=== PATIENT | female | born 2000 | race Caucasian/White ===

== ENCOUNTER 2020-11-19 08:08 | Emergency (ER) | payer SELFPAY ==
--- NOTE | 2020-11-19 08:25 | EDM.PDOC ---
ED HPI GENERAL MEDICAL PROBLEM - General Chief Complaint: Lower Extremity Injury/Pain Stated Complaint: LT ANKLE INJURY Time Seen by Provider: 11/19/20 08:14 Source of Information: Reports: Patient, Family (spouse) History Limitations: Reports: No Limitations - History of Present Illness INITIAL COMMENTS - FREE TEXT/NARRATIVE: 20-year-old female reports that she jumped down a couple of stairs this morning in a bit of a hurry and landed wrong. She suffered a inversion injury to her left ankle which caused her to fall to the floor. She was unable to put any weight on the ankle since injury which occurred about an hour and a half before arrival in the ED. She has a small abrasion to her volar right wrist but no other injuries. In particular no closed head injury. She has had no previous surgery on the left ankle. She denies any possibility of . Onset: Today, Sudden Onset Date: 11/19/20 Onset Time: 06:30 Duration: Minutes: Location: Reports: Lower Extremity, Left Quality: Reports: Ache, Throbbing (Left lateral ankle.) Severity: Moderate Improves with: Reports: Rest Worsens with: Reports: Other. Denies: Medication Context: Reports: Trauma. Denies: Activity, Exercise, Lifting, Sick Contact, Other (Inversion injury left ankle) Associated Symptoms: Denies: No Other Symptoms, Confusion, Chest Pain, Cough, cough w sputum, Diaphoresis, Fever/Chills, Headaches, Loss of Appetite, Malaise, Nausea/Vomiting, Rash, Seizure, Shortness of Breath, Syncope, Weakness Treatments [employer]: Reports: Acetaminophen Left Ankle Pain Score (Numeric/FACES): 9 - Related Data Allergies Allergy/AdvReac Type Severity Reaction Status Date / Time Anesthetics - Amide Type - Allergy Anaphylactic Verified 11/19/20 08:18 Select A Shock [Anesthetics - Amide Type] Anesthetics - Joaquina Type- Allergy Paralysis Verified 11/19/20 08:18 Parabens Past Medical History - Infectious Disease History Infectious Disease History: Reports: Novel Coronavirus - Past Surgical History HEENT Surgical History: Reports: Tonsillectomy Social & Family History - Family History Family Medical History: No Pertinent Family History - Tobacco Use Tobacco Use Status *Q: Never Tobacco User - Caffeine Use Caffeine Use: Reports: None - Recreational Drug Use Recreational Drug Use: Yes Drug Use in Last 12 Months: Yes Recreational Drug Type: Reports: Marijuana/Hashish - Living Situation & Occupation Living situation: Reports: Single Occupation: Unemployed Review of Systems - Review of Systems Review Of Systems: See Below Constitutional: Reports: No Symptoms Eyes: Reports: No Symptoms Ears: Reports: No Symptoms Nose: Reports: No Symptoms Mouth/Throat: Reports: No Symptoms Respiratory: Reports: No Symptoms Cardiovascular: Reports: No Symptoms GI/Abdominal: Reports: No Symptoms Genitourinary: Reports: No Symptoms Musculoskeletal: Reports: No Symptoms Skin: Reports: No Symptoms Neurological: Reports: No Symptoms Psychiatric: Reports: No Symptoms ED EXAM, GENERAL - Physical Exam Exam: See Below Exam Limited By: No Limitations General Appearance: Alert, WD/WN, Mild Distress, Other (Temperature is 36.1 degrees. Heart rate 92 and sinus respiratory is 20 with O2 sats 100% room air BP 150/84.) Peripheral Pulses: 3+: Posterior Tibial (L), Dorsalis Pedis (L) Extremities: Other (Examination was limited to the left lower extremity. No pain on firm compression of the proximal fibular head. No pain in the ankle on firm compression midshaft tib-fib. No obvious injury to the medial ligaments of the ankle deltoid ligament appears to be intact. There is marked swelling of the ) Neurological: Alert, Oriented, CN II-XII Intact, Normal Cognition Psychiatric: Normal Affect, Normal Mood Skin Exam: Warm, Dry, Intact, Normal Color, No Rash Course - Vital Signs Last Recorded V/S: Last Vital Signs Temp 36.1 C 11/19/20 08:17 Pulse 92 11/19/20 08:17 Resp 20 11/19/20 08:17 BP 150/84 H 11/19/20 08:17 Pulse Ox 100 11/19/20 08:17 - Orders/Labs/Meds Orders: Active Orders 24 hr Category Date Time Status Ankle Min 3V Lt [CR] Stat Exams 11/19/20 08:24 Taken Durable Medical Equipment for Discharge [DME for Oth 11/19/20 08:45 Ordered Discharge] [COMM] Stat Meds: Medications Discontinued Medications Generic Name Dose Route Start Last Admin Trade Name Freq PRN Reason Stop Dose Admin Ondansetron HCl 4 mg 11/19/20 08:57 Ondansetron 4 Mg Tab.Dis PO 11/19/20 08:58 ONETIME ONE Oxycodone/Acetaminophen 1 tab 11/19/20 08:57 Acetaminophen/Oxycodone 325-5 Mg Tab PO 11/19/20 08:58 ONETIME ONE - Radiology Interpretation Free Text/Narrative:: 20-year-old female presents to the ED with an acute inversion injury to her left ankle. She was jumping down some stairs and landed wrong suffering an inversion injury to her left lateral ankle which caused her to fall to the floor. Injury occurred about 2 hours ago. She has significant swelling of the left lateral ankle. Unable to weight-bear at all. Plan three-view x-ray of the ankle to be done. - Re-Assessments/Exams Free Text/Narrative Re-Assessment/Exam: 11/19/20 08:44 three-view x-ray of the left ankle is negative for any fractures. The tibiofibular ligament appears to be intact. Mortise view is normal. Plan Brant wrap on during the day off at night. Elevation, ice and nonweightbearing with crutches until able to walk without pain. Motrin 600 mg every 6 hours as needed for relief of pain. We will give her 1 Percocet 5/325 mg tablet orally in the department with Zofran 4 mg sublingual. She did take Motrin 600 mg at home before coming to the ED. Still having significant pain. Departure - Departure Time of Disposition: 08:45 Disposition: Home, Self-Care 01 Condition: Fair Clinical Impression: Sprain of calcaneofibular ligament of left ankle, initial encounter - Discharge Information *PRESCRIPTION DRUG MONITORING PROGRAM REVIEWED*: Not Applicable *COPY OF PRESCRIPTION DRUG MONITORING REPORT IN PATIENT DESTINY: Not Applicable Instructions: Ankle Sprain, Phase I Rehab-SportsMed, Ankle Sprain Referrals: PCP,None [Primary Care Provider] - Forms: ED Department Discharge, ED Return to Work/School Form Additional Instructions: Evaluation in the emergency room today in regards to an acute injury to your left lateral ankle which was caused by landing wrong from a jump. Severe inversion injury has strained or stretched the lateral ligaments of the left ankle resulting in swelling and pain. X-rays of the ankle x3 view do not reveal any broken bones. Treatment is to be nonweightbearing crutch walking for the next 3 to 5 days until you are able to put weight on the foot without any pain. Suggest Brant wrap on during the day and off at night for the next 10 days. Elevate the foot as much as possible for the next 2 days. Ice pack to the area 1/2-hour out of every 4 hours to reduce pain and swelling. Motrin 600 mg every 6 hours as needed to reduce pain and inflammation. Follow-up with personal care provider if not completely back to normal in 14 days time. Sepsis Event Note (ED) - Evaluation Sepsis Screening Result: No Definite Risk - Focused Exam Vital Signs: Vital Signs Temp Pulse Resp BP Pulse Ox 11/19/20 08:17 36.1 C 92 20 150/84 H 100 - My Orders Last 24 Hours: My Active Orders 11/19/20 08:24 Ankle Min 3V Lt [CR] Stat 11/19/20 08:45 Durable Medical Equipment for Discharge [DME for Discharge] [COMM] Stat - Assessment/Plan Last 24 Hours: My Active Orders 11/19/20 08:24 Ankle Min 3V Lt [CR] Stat 11/19/20 08:45 Durable Medical Equipment for Discharge [DME for Discharge] [COMM] Stat
[2020-11-19] MEDS ORDERED: Acetaminophen/oxyCODONE 325-5 MG Tab PO ONE (08:57)
[2020-11-19] MEDS ORDERED: Ondansetron 4 MG Tab.DIS PO ONE (08:57)
--- NOTE | 2020-11-19 09:16 | CR ---
Left ankle: 4 views of the left ankle were obtained. Comparison: No prior ankle study is available. Ankle mortise is symmetric. No acute fracture, dislocation or other bony abnormality is appreciated. Impression: 1. No abnormality is appreciated on left ankle exam. Diagnostic code #1
== END 2020-11-19 09:14 | disposition home or self-care (01) ==
LOC: JD.ED 08:08
DX: S93.412A Sprain of calcaneofibular ligament of left ankle, initial encounter (principal); Z88.4 Allergy status to anesthetic agent; W10.9XXA Fall (on) (from) unspecified stairs and steps, initial encounter
CPT/HCPCS: 73610; 99283; A9270